=== PATIENT | male | born 1950 | race Caucasian/White ===

== ENCOUNTER → 2016-11-07 | Outpatient (CLI) | payer OTHER | LOC: FIMAGING 11:07 | PROVIDERS: ATTEND Family Medicine | DX: R53.81 Other malaise (principal); R63.4 Abnormal weight loss; M48.54XA Collapsed vertebra, not elsewhere classified, thoracic region, initial encounter for fracture; M89.9 Disorder of bone, unspecified; M94.9 Disorder of cartilage, unspecified; Z79.899 Other long term (current) drug therapy ==

== ENCOUNTER → 2016-11-21 | Outpatient (CLI) | payer OTHER | LOC: FIMAGING 07:55 | PROVIDERS: ATTEND Family Medicine | DX: M54.9 Dorsalgia, unspecified (principal); S22.000S Wedge compression fracture of unspecified thoracic vertebra, sequela; M50.223 Other cervical disc displacement at C6-C7 level ==

== ENCOUNTER → 2017-07-15 | Outpatient (CLI) | payer OTHER ==
[~2017-07-15] MED LIST: IOPAMIDOL (ISOVUE-300) 100 ML BTL ONE
== END ==
LOC: FIMAGING 08:53
PROVIDERS: ATTEND Specialist
DX: R31.29 Other microscopic hematuria (principal)
CPT/HCPCS: 74178; Q9967

== ENCOUNTER → 2017-12-23 | Outpatient (CLI) | payer OTHER | LOC: FIMAGING 06:56 | PROVIDERS: ATTEND Family Medicine | DX: S46.011A Strain of muscle(s) and tendon(s) of the rotator cuff of right shoulder, initial encounter (principal); M75.91 Shoulder lesion, unspecified, right shoulder; S43.431A Superior glenoid labrum lesion of right shoulder, initial encounter; M24.011 Loose body in right shoulder; M12.811 Other specific arthropathies, not elsewhere classified, right shoulder ==

== ENCOUNTER → 2018-02-17 | Outpatient (CLI) | payer OTHER | LOC: FIMAGING 12:08 | PROVIDERS: ATTEND Family Medicine | DX: S83.241A Other tear of medial meniscus, current injury, right knee, initial encounter (principal); Z87.828 Personal history of other (healed) physical injury and trauma ==

== ENCOUNTER 2018-07-08 13:24 | Inpatient (IN) | payer OTHER ==
[2018-07-08] MEDS ORDERED: NS 1,000 ML IV ONE (14:08)
--- NOTE | 2018-07-08 14:16 | EDPHY ---
H & P <Christian Tipton - Last Filed: 07/08/18 17:03> Stated Complaint: fell while skiiing Source: Patient Exam Limitations: No limitations - Personal History Current Tetanus/Diphtheria Vaccine: Yes Current Tetanus Diphtheria and Acellular Pertussis (TDAP): Yes - Medical/Surgical History Hx Asthma: No Hx Chronic Respiratory Disease: No Hx Diabetes: No Hx Cardiac Disease: No Hx Renal Disease: No Hx Cirrhosis: No Hx Alcoholism: No Hx HIV/AIDS: No Hx Splenectomy or Spleen Trauma: No Other PMH: hypothyroidism, r kneesurgery, - Family History Significant Family History: No pertinent family hx - Social History Smoking Status: Former smoker Alcohol Use: Sober Drug Use: None <Korey Ren - Last Filed: 07/09/18 08:55> Time Seen by Provider: 07/08/18 13:54 HPI/ROS: CHIEF COMPLAINT: Left flank pain HISTORY OF PRESENT ILLNESS: Patient is a 67-year-old man who was skiing and fell and slid into a tree with his left flank. He was helmeted. He denies head neck or back injury. He was ambulatory. He denies injuries to his legs or arms. No abdominal pain. No chest pain. No shortness of breath. Severity: Moderate Modifying factors: None REVIEW OF SYSTEMS: Constitutional: denies: chills, fever, recent illness, recent injury EENTM: denies: blurred vision, double vision, nose congestion Respiratory: denies: cough, shortness of breath Cardiac: denies: chest pain, irregular heart rate, lightheadedness, palpitations Gastrointestinal/Abdominal: denies: abdominal pain, diarrhea, nausea, vomiting, blood streaked stools Genitourinary: denies: dysuria, frequency, hematuria, pain Musculoskeletal: denies: joint pain, muscle pain Skin: denies: lesions, rash, jaundice, bruising Neurological: denies: headache, numbness, paresthesia, tingling, dizziness, weakness Hematologic/Lymphatic: denies: blood clots, easy bleeding, easy bruising Immunologic/allergic: denies: HIV/AIDS, transplant 10 systems reviewed and negative except as noted EXAM: GENERAL: Well-appearing, well-nourished and in no acute distress. HEAD: Atraumatic, normocephalic. EYES: Pupils equal round and reactive to light, extraocular movements intact, sclera anicteric, conjunctiva are normal. ENT: TMs normal, nares patent, oropharynx clear without exudates. Moist mucous membranes. NECK: Normal range of motion, supple without lymphadenopathy or JVD. LUNGS: Breath sounds clear to auscultation bilaterally and equal. No wheezes rales or rhonchi. HEART: Regular rate and rhythm without murmurs, rubs or gallops. ABDOMEN: Soft, nontender, normoactive bowel sounds. No guarding, no rebound. No masses appreciated. BACK: Left CVA pain and mild tenderness, mild hematoma. No midline tenderness or step-offs. No weakness or numbness. EXTREMITIES: Normal range of motion, no pitting or edema. No clubbing or cyanosis. NEUROLOGICAL: Cranial nerves II through XII grossly intact. Normal speech, normal gait. 5/5 strength, normal movement in all extremities, normal sensation , normal reflexes PSYCH: Normal mood, normal affect. SKIN: Warm, dry, normal turgor, no visible rashes or lesions. (Korey Ren) Constitutional: Initial Vital Signs Temperature (C) 36.7 C 07/08/18 13:33 Heart Rate 57 L 07/08/18 13:33 Respiratory Rate 15 07/08/18 13:33 Blood Pressure 112/53 L 07/08/18 13:33 O2 Sat (%) 92 07/08/18 13:33 O2 Delivery Mode Nasal Cannula O2 (L/minute) 2 Allergies/Adverse Reactions: Penicillins Allergy (Verified 07/08/18 13:32) Home Medications: Medication Instructions Recorded Herbals/Supplements -Info Only 1 ea PO DAILY 07/08/18 Levothyroxine [Synthroid 75 mcg 75 mcg PO DAILY06 07/08/18 (*)] Medical Decision Making - Diagnostics Imaging: Discussed imaging studies w/ sales representative metals Radiologist <Christian Tipton - Last Filed: 07/08/18 17:03> - Diagnostics Imaging: Discussed imaging studies w/ sales representative metals Radiologist <Korey Ren - Last Filed: 07/09/18 08:55> ED Course/Re-evaluation: This significant delay getting blood work from the patient blood work is now been drawn and he is awaiting CT scan. Care transferred to Dr. Christian Tipton at shift change. (Korey Ren) Differential Diagnosis: Partial list of the Differential diagnosis considered include but were not limited to; renal injury, hematoma, rib fracture, pneumothorax and although unlikely based on the history and physical exam, I also considered pelvic fracture head injury, neck injury. (Korey Ren) Other Provider: Care assumed from Gela at 3:[address] With plan for CT scanning, pending i- STAT creatinine at this time. Patient had initial evaluation but imaging has not been performed yet. CT performed for flank pain after trauma. 1529: Istat Creat 0.9, CT coming for patient. 1552: Patient personally evaluated. He is ambulatory but has tenderness on his left lower chest from the scapular tip all the way down to the left hip. 1 cm left back abrasion at the tip of the scapula. Chest x-ray ordered as well. 1610: pneumothorax L 6-9 rib fractures, pneumothorax, posterior 8-10 rib fractures, left L4 transverse process fracture, negative for solid organ injury , left flank hematoma; [place]. 1615: Results discussed with the patient, discussed with trauma surgeon Dr. Weeks will consult, admission for management of multiple traumatic injuries. Dilaudid 1 mg IV given. (Christian Tipton) - Data Points Laboratory Results: Laboratory Results 07/08/18 15:20 07/08/18 15:20 Medications Given: Acetaminophen (Tylenol) 325 - 650 mg PO Q4HRS PRN PRN Reason: Pain, Mild Able to Take PO Stop: 01/04/19 16:52 Last Admin: 07/08/18 19:01 Dose: 650 mg Ibuprofen (Motrin) 600 mg PO Q8HRS PRN PRN Reason: Pain, Moderate Stop: 01/04/19 16:52 Last Admin: 07/09/18 08:19 Dose: 600 mg Levothyroxine Sodium (Synthroid) 75 mcg PO DAILY06 LILI Stop: 01/05/19 05:59 Last Admin: 07/09/18 05:30 Dose: 75 mcg Lorazepam (Ativan) 2 mg PO Q6HRS PRN PRN Reason: Anxiety, Able to Take PO Stop: 01/04/19 19:10 Last Admin: 07/08/18 22:28 Dose: 2 mg Miscellaneous Medication (Icy Hot Lidocaine/Menthol 4%/1% Patch) 1 patch TD DAILY LILI Stop: 01/05/19 08:59 Last Admin: 07/09/18 07:29 Dose: 1 patch Morphine Sulfate (Morphine) 1 - 2 mg IVP Q1HR PRN PRN Reason: Pain, Severe Unable to Take PO Stop: 07/18/18 16:52 Last Admin: 07/08/18 22:28 Dose: 2 mg Ondansetron HCl (Zofran Odt) 4 mg PO Q4HRS PRN PRN Reason: Nausea/Vomiting, can Take Po Stop: 01/04/19 16:52 Last Admin: 07/08/18 18:57 Dose: 4 mg Oxycodone HCl (Oxycodone Ir) 5 - 10 mg PO Q4HRS PRN PRN Reason: Pain, Severe Able to Take PO Stop: 07/18/18 16:58 Last Admin: 07/09/18 05:30 Dose: 10 mg Promethazine HCl (Phenergan) 6.25 mg IVP Q6HRS PRN PRN Reason: Nausea/Vomiting, Can't Take PO Stop: 01/04/19 19:19 Last Admin: 07/08/18 21:33 Dose: 6.25 mg Senna/Docusate Sodium (Senokot-S) 1 - 2 tab PO BID LILI PRN Reason: Protocol Stop: 01/04/19 20:59 Last Admin: 07/09/18 07:28 Dose: 1 tab Discontinued Medications Hydromorphone HCl (Dilaudid) 0.5 mg IVP EDNOW ONE Stop: 07/08/18 14:33 Last Admin: 07/08/18 14:34 Dose: 0.5 mg Hydromorphone HCl (Dilaudid) 1 mg IVP EDNOW ONE Stop: 07/08/18 16:18 Last Admin: 07/08/18 16:26 Dose: 1 mg Sodium Chloride (Ns) 1,000 mls @ 0 mls/hr IV ONCE ONE; Wide Open PRN Reason: Protocol Stop: 07/08/18 14:09 Last Admin: 07/08/18 14:32 Dose: 1,000 mls Ondansetron HCl (Zofran) 4 mg IVP EDNOW ONE Stop: 07/08/18 14:32 Last Admin: 07/08/18 14:33 Dose: 4 mg Point of Care Test Results: Chemistry 07/08/18 15:26 POC Sodium 142 mEq/L mEq/L (135-145) POC Potassium 3.9 mEq/L mEq/L (3.3-5.0) POC Chloride 107 mEq/L mEq/L (97-110) POC BUN 23 mg/dL mg/dL (7-23) POC Creatinine 0.9 mg/dL mg/dL (0.7-1.3) POC Glucose 93 mg/dL mg/dL (70-100) ISTAT H&H 07/08/18 15:26 POC Hgb 13.3 gm/dL L gm/dL (13.7-17.5) POC Hct 39 % L % (40-51) Departure <Christian Tipton S - Last Filed: 07/08/18 17:03> <Korey Ren E - Last Filed: 07/09/18 08:55> - Departure Disposition: [facility] Inpatient Acute Clinical Impression: Left flank contusion Multiple rib fractures Qualifiers: Encounter type: initial encounter Fracture type: closed Laterality: left Qualified Code(s): S22.42XA - Multiple fractures of ribs, left side, initial encounter for closed fracture Fracture of spinous process of lumbar vertebra Qualifiers: Encounter type: initial encounter Fracture type: closed Qualified Code(s): S32.009A - Unspecified fracture of unspecified lumbar vertebra, initial encounter for closed fracture Pneumothorax, closed, traumatic Qualifiers: Encounter type: initial encounter Qualified Code(s): S27.0XXA - Traumatic pneumothorax, initial encounter Condition: Good
[2018-07-08] MEDS ORDERED: HYDROmorphONE/DILAUDID 1 MG/ML INJ ONE (14:19)
[2018-07-08] MEDS ORDERED: ONDANSETRON 4 MG/2 ML VIAL ONE (14:30)
[2018-07-08] MEDS ORDERED: ONDANSETRON 4 MG/2 ML VIAL IVP ONE (14:31)
[2018-07-08] MEDS ORDERED: HYDROmorphONE/DILAUDID 2 MG/ML INJ IVP ONE ×2 (14:32→16:17)
[2018-07-08 15:32] LABS: PLATELET COUNT 147 10^3/uL (150-400)
[2018-07-08 15:39] LABS: INR 1.08 (0.83-1.16); PROTIME(PATIENT) 14.2 SEC (12.0-15.0)
[2018-07-08] MEDS ORDERED: ONDANSETRON 4 MG/2 ML VIAL IVP PRN (16:53)
[2018-07-08] MEDS ORDERED: IBUPROFEN 600 MG TAB PO PRN (16:53)
[2018-07-08] MEDS ORDERED: ACETAMINOPHEN 325 MG TAB PO PRN (16:53)
--- NOTE | 2018-07-08 17:50 | GHP ---
DATE OF ADMISSION: 07/08/2018 CHIEF COMPLAINT: Trauma status post skiing accident. HISTORY OF PRESENT ILLNESS: This is a 67-year-old man who was skiing at [place] today when his ski caught an edge. He tried to recover and over compensated and caught the edge again. He subsequently fell and slid, hitting a tree and then falling beyond that. He did not lose consciousness. However, he did realize that he was injured right away and "was in shock." He does have complaint mainly of pain in his lower left back and by his ribs. Taking a deep breath makes the pain worse. He was wearing a helmet. PAST MEDICAL HISTORY: His primary care provider is Dr. Melissa. Hypothyroidism, sleep apnea. He does not use any devices but does wear a collar at night that will alert him when he is lying on his back. PAST SURGICAL HISTORY: Surgery on his knee meniscus. FAMILY HISTORY: No significant family medical history noted in [place]. ALLERGIES: Penicillin. MEDICATIONS: Include multiple herbals, Synthroid 75 mcg. SOCIAL HISTORY: His 2 years ago and he lives independently. He does have a orange picker who also lives in her own house. They do many activities and travel together. He was a former smoker. REVIEW OF SYSTEMS: 10-point review of systems negative other than HPI. PHYSICAL EXAM: VITAL SIGNS: 36.7, 60, 100/60, 18, 94% on 2 L. GENERAL: Pleasant well-nourished, well-groomed fit man sitting up in [facility], appears in mild distress. His orange picker is at the bedside. HEENT: He has a small laceration over his nasal bridge, normocephalic. Pupils equal and round and track normally. No otorrhea. No rhinorrhea. Teeth fit together normally. No midface instability. NECK: No cervical spine tenderness. BACK: No tenderness along the vertebrae. On the lower left back, he does have a ballotable boggy area without overlying ecchymosis. CHEST: No clavicular tenderness. He does have tenderness over the left rib cage. MUSCULOSKELETAL: 5/5 strength upper and lower extremities. Somewhat limited on the left upper arm due to pain. He does have pain on the posterior shoulder. LUNGS: Decreased work of breathing, but surprisingly clear to auscultation bilaterally. CARDIAC: Regular rate. NEURO: 2 through 12 grossly intact. SKIN: Warm and dry. The smallest of abrasions over left scapula. PSYCH: Mood and affect normal. LAB RESULTS: I personally reviewed the results and images of his chest x-ray and can see the visible rib fractures with a small pneumothorax and I personally reviewed the CT scan of his abdomen and pelvis. I did not see any signs of solid organ injury, free air or intraperitoneal fluid. IMPRESSION AND PLAN: The patient is a 67-year-old status post skiing accident. He has left rib fractures 6 through 9 and posterior 8 through 10, associated small pneumothorax, L4 transverse process fracture and a left flank hematoma. For the rib fractures, we will do cough, deep breathing, incentive spirometer. I will put him on continuous pulse ox, especially since he has a history of sleep apnea. For the pneumothorax will repeat his chest x-ray in the morning. No treatment needed for the transverse process fracture on L4. We will monitor the left flank hematoma. I did discuss with him that sometimes these do need to be drained as they liquefy. For shoulder pain, I have ordered a shoulder x- ray. He can have a general diet. Pain control with Tylenol, Motrin, lidocaine patch, Oxy IR, morphine. I placed him in observation for now, but it is possible that he may need to stay 2 midnights. We will order his home Synthroid , PT, OT, FUEL OPERATOR. Shoulder x ray negative. /[id number]/MODL MTDD
[2018-07-08] MEDS: ONDANSETRON DISINTEGRATING 4 MG TAB PO PRN (18:57)
[2018-07-08] MEDS: oxyCODONE IR 5 MG TAB PO PRN (19:01)
[2018-07-08] MEDS ORDERED: LORazepam 1 MG TAB PO PRN (19:11)
[2018-07-08] MEDS ORDERED: POLYETHYLENE GLYCOL 3350 17 GM PKT PO PRN (19:12)
[2018-07-08] MEDS ORDERED: LACTULOSE 20 GM/30 ML UDCUP PO PRN (19:12)
[2018-07-08] MEDS ORDERED: MAGNESIUM HYDROXIDE 30 ML UDCUP PO PRN (19:12)
[2018-07-08] MEDS ORDERED: BISACODYL 10 MG SUPP PR PRN (19:12)
[2018-07-08] MEDS ORDERED: PROMETHAZINE HCL 25 MG/ML INJ IVP PRN (19:20)
[2018-07-08] MEDS: SENNOSIDES/DOCUSATE SODIUM TAB PO SCH (20:51)
[2018-07-08] MEDS: LORazepam 1 MG TAB PO PRN (22:28)
[2018-07-09] MEDS: LEVOTHYROXINE 75 MCG TAB PO SCH (05:30)
[2018-07-09] MEDS: oxyCODONE IR 5 MG TAB PO PRN ×3 (05:30→17:32)
[2018-07-09] MEDS: SENNOSIDES/DOCUSATE SODIUM TAB PO SCH ×2 (07:28→21:21)
[2018-07-09] MEDS: LIDOCAINE 4%/MENTHOL 1% PATCH TD SCH (07:29)
--- NOTE | 2018-07-09 08:19 | SOAPPROG ---
SOAP Progress Note Assessment/Plan: Assessment: 67 y/o M s/p ski fall yesterday, L sided ribs 6-9 fx, 8 and 10 posterior fx, small pneumothorax, L4 compression fx, L flank hematoma S: Doing well. Working on deep breathing. Would like to work with PT today. Lives alone. Would like to stay one more day. O: Alert Afebrile VSS RRR CTA bilaterally, no increased WOB Moderately sized hematoma L flank without ecchymosis, ttp Plan: Work with PT today. Dispo home likely tomorrow. 07/09/18 08:15 Objective: Vital Signs Temp Pulse Resp BP Pulse Ox 36.6 C 66 16 113/63 92 07/09/18 07:23 07/09/18 07:23 07/09/18 07:23 07/09/18 07:23 07/09/18 07:23 07/08/18 07/09/18 07/10/18 05:59 05:59 05:59 Intake Total 1475 Balance 1475 PT 14.2 SEC (12.0-15.0) 07/08/18 15:20 INR 1.08 (0.83-1.16) 07/08/18 15:20 ICD10 Worksheet Patient Problems: Problems Problem Status Onset Fracture of spinous process of lumbar vertebra Acute Multiple rib fractures Acute Pneumothorax, closed, traumatic Acute
--- NOTE | 2018-07-09 08:34 | SOAPPROG ---
SOAP Progress Note Assessment/Plan: Assessment: TERTIARY SURVEY DOING WELL/ CO RIB PAIN WITH DEEP BREATH/ NO OTHER NEW COMPLAINTS/ NO LOC HEENT NONICTERIC, PERRLA CHEST TENDER LEFT RIBS LATERALLY, BS EQUAL COR RR ABD SOFT NONTENDER EXTREM OK, FULL ROM BACK LARGE FLANK SEROMA ON LEFT WITHOUT ECCHYMOSES NEURO PHYSIOLOGIC PSYCH ALERT, ORIENTED Plan:PT TODAY, PROBABLY HOME TOMORROW 07/09/18 08:28 Objective: Vital Signs Temp Pulse Resp BP Pulse Ox 36.6 C 66 16 113/63 92 07/09/18 07:23 07/09/18 07:23 07/09/18 07:23 07/09/18 07:23 07/09/18 07:23 07/08/18 07/09/18 07/10/18 05:59 05:59 05:59 Intake Total 1475 Balance 1475 PT 14.2 SEC (12.0-15.0) 07/08/18 15:20 INR 1.08 (0.83-1.16) 07/08/18 15:20 ICD10 Worksheet Patient Problems: Problems Problem Status Onset Fracture of spinous process of lumbar vertebra Acute Multiple rib fractures Acute Pneumothorax, closed, traumatic Acute
[2018-07-09] MEDS ORDERED: ENOXAPARIN 40 MG/0.4 ML SYR SC SCH (09:00)
[2018-07-09] MEDS: ONDANSETRON DISINTEGRATING 4 MG TAB PO PRN (13:27)
--- NOTE | 2018-07-09 15:41 | ASMTCMCOM ---
CM Note CM Note Notes: 67 yo M presented post ski accident with multiple rib fractures. Pt lives independently and has support from friend. No D/C needs anticipated. CM available if needs arise. Plan: Independent. Date Signed: 07/09/2018 03:40 PM Electronically Signed By:LUIS ANGEL Valenzuela
--- NOTE | 2018-07-09 15:42 | PDMN ---
Medical Necessity Medical necessity: Pt meets IP criteria as of 07/09/2018 per MD and MCG [id number] ( rib fracture); los > 2 mn for rib fractures 6-9 and posterior 8-10 as well as L4 frature and left flank hematoma from skiing accident; requiring trauma consult, pain management, respiratory support and therapies.
[2018-07-09] MEDS ORDERED: PATCH REMOVAL 1 EA PATCH TD SCH (21:00)
[2018-07-09] MEDS: LORazepam 1 MG TAB PO PRN (21:21)
[2018-07-10] MEDS: LEVOTHYROXINE 75 MCG TAB PO SCH (05:42)
[2018-07-10] MEDS: oxyCODONE IR 5 MG TAB PO PRN ×2 (05:42→10:10)
[2018-07-10 08:27] VITALS: BP 110/67
--- NOTE | 2018-07-10 09:05 | SOAPPROG ---
SOAP Progress Note Assessment/Plan: Assessment: Plan: Subjective: comfortable when still, otherwise robby in left chest with rib fractures vss, af lungs clear assess: multiple l rib fx, transverse process fx, ok for discharge on pian meds. followou pwith dr rojas one week Objective: Vital Signs Temp Pulse Resp BP Pulse Ox 36.8 C 59 L 16 110/67 93 07/10/18 08:00 07/10/18 08:00 07/10/18 08:00 07/10/18 08:00 07/10/18 08:00 PT 14.2 SEC (12.0-15.0) 07/08/18 15:20 INR 1.08 (0.83-1.16) 07/08/18 15:20 ICD10 Worksheet Patient Problems: Problems Problem Status Onset Fracture of spinous process of lumbar vertebra Acute Multiple rib fractures Acute Pneumothorax, closed, traumatic Acute
[2018-07-10] MEDS: SENNOSIDES/DOCUSATE SODIUM TAB PO SCH (10:12)
[2018-07-10] MEDS: LIDOCAINE 4%/MENTHOL 1% PATCH TD SCH (10:12)
--- NOTE | 2018-07-15 13:28 | GDS ---
HISTORY OF PRESENT ILLNESS: Patient was admitted with multiple rib fractures, small pneumothorax, sp inous process fracture. At the time of discharge, he was tolerating oral pain medications and able t o function. FINAL DIAGNOSIS: 1. Left rib fractures 6 through 9, 8 through 10. 2. Left L4 transverse process fracture. 3. Small left pneumothorax, not treated. DISPOSITION: Home. FOLLOWUP: With Dr. Adriana medina continued symptoms. /[id number]/[facility] [place]
== END 2018-07-10 11:31 | disposition home or self-care (01) | DRG 184 ==
LOC: EDUNIT# → F3E 17:22 → INTOOBSV 07-09 15:03 → OBSVTOIN 07-09 15:03
PROVIDERS: ADMIT Surgery; ATTEND Surgery
DX: S22.42XA Multiple fractures of ribs, left side, initial encounter for closed fracture (principal); S27.0XXA Traumatic pneumothorax, initial encounter; S32.048A Other fracture of fourth lumbar vertebra, initial encounter for closed fracture; V00.322A Snow-skier colliding with stationary object, initial encounter; Y93.23 Activity, snow (alpine) (downhill) skiing, snowboarding, sledding, tobogganing and snow tubing; Y92.838 Other recreation area as the place of occurrence of the external cause; E86.9 Volume depletion, unspecified; E03.9 Hypothyroidism, unspecified; G47.30 Sleep apnea, unspecified; Z87.891 Personal history of nicotine dependence
CPT/HCPCS: 82435-PO; 82565-PO; 82947-PO; 84132-PO; 84295-PO; 84520-PO; 85014-PO; 92523-GN; 96374; 97116-GP; 97161-GP; 97165-GO; 97535-GO; G0378; G8978-GP-CJ; G8979-GP-CI; G8980-GP-CH; G8987-GO-CJ; G8988-GO-CI; G8989-GO-CI; G9168-GN-CH; G9169-GN-CH; G9170-GN-CH; J1170; J2270; J2405; J2550

== ENCOUNTER → 2018-07-20 | Outpatient (CLI) | payer OTHER | LOC: FIMAGING 09:33 | PROVIDERS: ATTEND Surgery | DX: J98.11 Atelectasis (principal); S22.42XD Multiple fractures of ribs, left side, subsequent encounter for fracture with routine healing ==

== ENCOUNTER → 2018-09-01 | Outpatient (CLI) | payer OTHER | LOC: FIMAGING 14:07 | PROVIDERS: ATTEND Family Medicine | DX: Z13.820 Encounter for screening for osteoporosis (principal); Z87.81 Personal history of (healed) traumatic fracture ==